=== PATIENT | female | born 1970 ===

== ENCOUNTER 2018-12-21 06:39 | Day surgery (SDC) | payer OTHER ==
[2018-12-21 07:04] VITALS: BMI 32.9
[2018-12-21] MEDS ORDERED: Propofol 10 mg/ml Inj (20 ML) ONE (08:31)
--- NOTE | 2018-12-21 08:33 | CP.SDSHP ---
Same Day Surgery H & P - History Proposed Procedure: EGD Pre-Op Diagnosis: SEE NOTES - Previous Medical/Surgical History Neuro: Other Misc: Other - Allergies Allergies: Allergies aspirin Allergy (Verified 09/12/16 10:22) RASH morphine Allergy (Verified 09/12/16 10:22) SHORTNESS OF BREATH - Physical Exam General Appearance: N Vital Signs: Vital Signs 12/21/18 07:35 Temperature 98.8 F Pulse Rate 80 Respiratory 17 Rate Blood Pressure 117/80 O2 Sat by Pulse 99 Oximetry Neuro: WNL Heart: WNL Lungs: WNL GI: Other - {Optional Preform as Required} Breast: WNL Abdomen: Other Rectal: Other Integument: WNL : WNL Ortho: Other ENT: WNL - Impression Pt. Evaluated Today:Candidate for Anesthesia & Procedure: Yes - Date & Time Time: 08:34 Short Stay Discharge - Short Stay Discharge Admitting Diagnosis/Reason for Visit: FUNCTIONAL DYSPEPSIA Disposition: HOME/ ROUTINE
[2018-12-21] MEDS ORDERED: Belladonna-Phenobarbital PO STA (08:36)
[2018-12-21] MEDS ORDERED: Sucralfate 1 gm/10 ml Oral Susp UD PO ONE (09:00)
[2018-12-21 09:45] VITALS: TEMP 98; O2SAT 100
[2018-12-21 09:47] VITALS: RESP 12
[2018-12-21 09:49] VITALS: BP 132/85; PULSE 83
== END 2018-12-21 09:47 | disposition home or self-care (01) ==
LOC: C.ENDO 06:39
PROVIDERS: ATTEND Specialist
DX: K29.50 Unspecified chronic gastritis without bleeding (principal); K30 Functional dyspepsia; K21.9 Gastro-esophageal reflux disease without esophagitis; M06.9 Rheumatoid arthritis, unspecified; M79.7 Fibromyalgia; F32.9 Major depressive disorder, single episode, unspecified; Z88.5 Allergy status to narcotic agent; Z88.6 Allergy status to analgesic agent
CPT/HCPCS: 43239; 84703; 88305; 88312; 88342; J2001; J2704

== ENCOUNTER 2018-12-23 06:40 | Day surgery (SDC) | payer OTHER ==
[2018-12-23] MEDS ORDERED: Propofol 10 mg/ml Inj (20 ML) ONE (08:38)
--- NOTE | 2018-12-23 08:42 | CP.SDSHP ---
Same Day Surgery H & P - History Proposed Procedure: COLONSCOPY Pre-Op Diagnosis: SEE NOTES - Previous Medical/Surgical History Neuro: Other Misc: Other Pain: 4.Moderate Pain - Allergies Allergies: Allergies aspirin Allergy (Verified 09/12/16 10:22) RASH morphine Allergy (Verified 09/12/16 10:22) SHORTNESS OF BREATH - Physical Exam General Appearance: N Vital Signs: Vital Signs 12/23/18 07:13 Temperature 96.9 F L Pulse Rate 80 Respiratory 17 Rate Blood Pressure 120/83 O2 Sat by Pulse 100 Oximetry Mental Status: Alert & Oriented x3 Neuro: WNL Heart: WNL Lungs: WNL GI: Other - {Optional Preform as Required} Breast: WNL Abdomen: Other Rectal: Other Integument: WNL : WNL Ortho: Other ENT: WNL - Impression Pt. Evaluated Today:Candidate for Anesthesia & Procedure: Yes - Date & Time Time: 08:42 Short Stay Discharge - Short Stay Discharge Admitting Diagnosis/Reason for Visit: DIARRHEA, UNSPECIFIED Disposition: HOME/ ROUTINE
[2018-12-23] MEDS ORDERED: Lidocaine Hydrochloride 5 ML INJ ONE (08:45)
[2018-12-23] MEDS ORDERED: Midazolam 2 MG/2 ML VIAL ONE (08:45)
[2018-12-23] MEDS ORDERED: Belladonna-Phenobarbital PO ONE (09:00)
[2018-12-23 09:38] VITALS: TEMP 97.3
[2018-12-23] MEDS ORDERED: MethylPREDNISolone 40 mg Vial IVP ONE (09:50)
[2018-12-23 10:08] VITALS: RESP 16
[2018-12-23 10:11] VITALS: BP 122/77; PULSE 80
[2018-12-23 11:02] VITALS: O2SAT 99
== END 2018-12-23 10:33 | disposition home or self-care (01) ==
LOC: C.ENDO 06:40
PROVIDERS: ATTEND Specialist
DX: R19.7 Diarrhea, unspecified (principal); K64.8 Other hemorrhoids
CPT/HCPCS: 45380; 84703; 87045; 87177; 87209; 87230; 88305; 88313; 88342; J2250; J2704; J2920